=== PATIENT | male | born 1955 ===

== ENCOUNTER → 2021-10-17 | Outpatient (CLI) | payer OTHER ==
[~2021-10-17] VITALS: Ht 172.7 cm; Wt 79.4 kg
[~2021-10-17] MED LIST: ATIVAN1 M1 PO; CHLORTHALIDONE25 MG PO; COLACE 100 MG100 MG PO; COREG6.25 MG PO; FIBER0.52 GM PO; L-METHYLFOLATE15 M1 PO; LIPITOR40 MG PO; LOSARTAN POTAS100 MG PO; MAGNESIUM400 MG PO; NEURONTIN100 MG PO; PROSCAR 5MG TABL5 M1 PO; PROTONIX40 M2 PO; REMERON30 MG PO; SERTRALINE HCL100 MG PO; TAMSULOSIN HCL0.4 MG PO; VITAMIN B-121000 MC3 PO; VITAMIN D375 MCG PO
--- NOTE | 2021-10-18 16:06 | PATH ---
[facility] [address] [place] [address] PATHOLOGY RPT PROCEDURE Name: DENNIS AMBRIZ Room #: REG PHAMChelsi Foreman.#: [id number] Admission: 10/17/21 Date of : 51 Discharge: Report #: [id number] Path Case #: [id number] [facility] Accession Number: [id number] . 01 Material submitted: . gastrointestinal site - RANDOM GASTRIC BIOPSY- R/O H. PYLORI . 01 Clinical history: . ESOPHAGOGASTRODUODENOSCOPY GERD GASTRITIS, HIATAL HERNIA . 02 Diagnosis: Gastric mucosa (biopsies): - Mild chronic gastritis, inactive, negative for dysplasia, negative for intestinal metaplasia, negative for Helicobacter-like organisms. (DOMINIK:og; 10/18/2021) [facility] 10/18/2021 1231 Local . 02 Comment: IHC for H. pylori on A1: Negative. (DOMINIK:og; 10/18/2021) . 02 Electronically signed: . Jax Womack MD, Pathologist NPI- [id number] . 01 Gross description: . The specimen is received in formalin, labeled "Dennis Ambriz, ambar gastric BX rule out H. pylori". Received are 4 segments of pale barker tissue ranging in size from 0.3 to 0.7 cm in maximum dimensions. The specimen is submitted entirely in cassette A1.([facility]; 10/17/2021) [facility] 10/17/2021 1655 Local . 02 Pathologist provided ICD-10: K29.50 . 02 CPT . [id number], [id number] Specimen Comment: A courtesy copy of this report has been sent to [phone], [phone] Specimen Comment: [id number] Specimen Comment: Report sent to / DR YOUNG Performed at: [facility] [address] [place] [id number] MD Raul Snow MD Phone: [phone] [address] [address] PATHOLOGY RPT PROCEDURE Name: DENNIS AMBRIZ Room #: REG CLChelsi Rivera#: [id number] Admission: 10/17/21 Date of : 51 Discharge: Report #: [id number] Path Case #: [id number] Performed at: 02 [facility] [address] [id number] MD Jax Womack MD Phone: [phone]
== END | disposition home or self-care (01) ==
LOC: GI 06:41
PROVIDERS: ATTEND Internal Medicine Gastroenterology
DX: K21.9 Gastro-esophageal reflux disease without esophagitis (principal); K29.50 Unspecified chronic gastritis without bleeding; K44.9 Diaphragmatic hernia without obstruction or gangrene; I10 Essential (primary) hypertension; E78.5 Hyperlipidemia, unspecified; F32.9 Major depressive disorder, single episode, unspecified; F41.9 Anxiety disorder, unspecified; Z98.890 Other specified postprocedural states; Z79.899 Other long term (current) drug therapy; Z20.822 Contact with and (suspected) exposure to COVID-19; Z87.19 Personal history of other diseases of the digestive system; Z90.49 Acquired absence of other specified parts of digestive tract
CPT/HCPCS: 62110; 62900